=== PATIENT | female | born 2000 | race African-American/Black ===

== ENCOUNTER 2022-01-13 18:36 | Emergency (ER) | payer MEDICAID ==
[~2022-01-13] VITALS: Ht 162.6 cm; Wt 49.0 kg
[2022-01-13 21:35] VITALS: BP 105/66
== END 2022-01-13 21:35 | disposition home or self-care (01) ==
LOC: ER 18:56
DX: H10.11 Acute atopic conjunctivitis, right eye (principal); Z88.2 Allergy status to sulfonamides
CPT/HCPCS: 99281; 99282

== ENCOUNTER 2022-01-30 17:08 | Emergency (ER) | payer MEDICAID ==
[~2022-01-30] VITALS: Ht 170.2 cm; Wt 55.0 kg
[2022-01-30] MEDS ORDERED: CEPHALEXIN 250MG CAPSULE PO ONE (17:45)
[2022-01-30] MEDS ORDERED: IBUP-2029 MT (17:52)
[2022-01-30] MEDS ORDERED: CEPH500C2 MT (17:52)
[2022-01-30] MEDS: IBUPROFEN 600MG TABLET PO ONE ×2 (18:16→18:29)
[2022-01-30 18:45] VITALS: BP 117/75
== END 2022-01-30 18:47 | disposition home or self-care (01) ==
LOC: ER 17:08
DX: L02.11 Cutaneous abscess of neck (principal)
CPT/HCPCS: 99283